=== PATIENT | female | born 1985 | race Caucasian/White ===

== ENCOUNTER → 2017-03-05 | Day surgery (SDC) | payer OTHER ==
[~2017-03-05] VITALS: Ht 160 cm; Wt 82.6 kg
[~2017-03-05] MED LIST: ACETAMINOPHEN 1000 MG/100 ML VIAL IV ONE; ACETAMINOPHEN/HYDROcodone 325 MG/5 MG TAB ONE; ACETAMINOPHEN/HYDROcodone 325 MG/5 MG TAB PO PRN; ALPR.5 PO; ARMO180T PO; CHLORHEXIDINE GLUCONATE 2 % 1 PACK (2 CLOTHS) TOPICAL PRN; DEXAMETHASONE SOD PHOS 4 MG/ML VIAL ONE; DO NOT ADM ANY ANTICOAGULANT DRUGS PRN; FAMOTIDINE 20 MG/2 ML VIAL ONE; INSULIN HUMAN REGULAR 1,000 UNITS/10 ML VIAL SQ PRN; KETOROLAC TROMETHAMINE 60 MG/2 ML (IM) VIAL IM ONE; LACTATED RINGER'S 1000 ML INJ 1,000 ML IV ONE; LACTATED RINGER'S 1000 ML IV PRN; METOPROLOL TARTRATE 25 MG TAB PO PRN; MIDAZOLAM HCL 2 MG/2 ML VIAL ONE; ONDANSETRON HCL 4 MG/2 ML VIAL IV PUSH ONE; OXYTOCIN 10 UNIT/ML AMP ONE; PHEN37.5 PO; POVIDONE IODINE 5% (ANTISEPSIS KIT) 4 APPLICATIONS EACH NARE PRN; PROPOFOL 200 MG/20 ML AMP IV ONE; SERT-129 PO; SERT-132 PO; SODIUM CHLORID 0.9% 500 ML IV PRN; XANA0.5T PO; fentaNYL CITRATE 250 MCG/5 ML AMP ONE
[2017-03-05 14:37] VITALS: BP 124/88; PULSE 86; RESP 18; TEMP 98.1; O2SAT 100
[2017-03-05 15:45] LABS: AUTOMATED NEUTROPHIL # 6.2 TH/MM3 (1.8-7.7); BASOPHIL # 0.1 TH/MM3 (0-0.2); BASOPHIL % 0.5 % (0.0-2.0); EOSINOPHIL # 0.2 TH/MM3 (0-0.4); EOSINOPHIL % 1.6 % (0.0-4.0); HEMATOCRIT 39.1 % (35.0-46.0); HEMO FLAGS DIFF FINAL; LYMPH % 28.3 % (9.0-44.0); LYMPHOCYTE # 2.8 TH/MM3 (1.0-4.8); MEAN CELL VOLUME 88.7 FL (80.0-100.0); MEAN CORPUSCULAR HEMOGLOBIN 29.3 PG (27.0-34.0); MEAN CORPUSCULAR HGB CONC 33.1 % (32.0-36.0); MONO % 7.7 % (0.0-8.0); NEUT % 61.9 % (16.0-70.0); PLATELET COUNT 239 TH/MM3 (150-450); RED BLOOD COUNT 4.41 MIL/MM3 (4.00-5.30); RED CELL DISTRIBUTION WIDTH 12.6 % (11.6-17.2)
[2017-03-05 18:15] VITALS: BP 136/94; PULSE 75; RESP 16; TEMP 97.1; O2SAT 100
--- NOTE | 2017-03-06 11:25 | MP ---
cc: Gabo LYNCH MD DATE OF SURGERY: 03/05/2017 PREOPERATIVE DIAGNOSIS Missed . POSTOPERATIVE DIAGNOSIS Missed . PROCEDURE Dilation and evacuation of the uterus. ANESTHESIA General. SURGEON Gabo Lynch MD FINDINGS The uterus was slightly enlarged and mobile. The adnexa were negative for masses. The products of conception looked normal and the float test was positive for chorionic villi. COMPLICATIONS None. COUNTS Correct. ESTIMATED BLOOD LOSS 100 cc. FLUIDS Crystalloids. CONDITION The patient tolerated the procedure well and went to the recovery room in good condition. DETAILS OF PROCEDURE The patient was taken to the operating room, identified by name band and verbally, and given a general anesthetic. A timeout was taken. Examination under anesthesia was carried out after the urinary bladder had been drained. A weighted speculum was placed in the vagina. The anterior lip of the cervix was grasped with a single-tooth tenaculum. The cervix was serially dilated up to 8 mm and an 8 mm cannula was placed and suction applied. The products of conception were removed and a sharp curettage followed. At this point bleeding was minimal. She tolerated the procedure well. All instruments were removed. The products of conception were then floated in water in a basin and chorionic villi were identified visually. She went to the recovery room in good condition. Gabo Lynch MD RJV/BT /7:08 AM /11:17 AM
== END | disposition home or self-care (01) ==
LOC: HSDC 13:50
PROVIDERS: ATTEND Obstetrics & Gynecology
DX: O02.1 Missed abortion (principal); Z01.818 Encounter for other preprocedural examination
CPT/HCPCS: 01965; 59820; 85025; 86900; 86901; 88305; J0131; J1100; J1885; J2250; J2405; J3010; J7120; J2590